=== PATIENT | female | born 2000 | race Two or more races ===

== ENCOUNTER 2024-07-13 19:32 | Emergency (ER) | payer MEDICAID, SELFPAY ==
[2024-07-13 19:59] VITALS: BP 116/73; PULSE 66; RESP 18; TEMP 37.1; O2SAT 99; BMI 30.4
--- NOTE | 2024-07-13 20:17 | XR_ITS ---
Examination: Abdomen sonogram, Limited Date and time of exam: July 13, 2024 at 10 0 1:00 PM Indications: Right upper abdominal pain and vomiting today Technique: Real-time armando scale transabdominal sonographic images of the upper abdomen obtained. Findings: Cholelithiasis, multiple gallstones Gallbladder wall 0.2 cm Common bile duct 0.3 cm Pancreatic head 2.8 cm Liver 14.2 cm fatty infiltration no focal liver lesions Normal hepatopedal portal venous flow Patent IVC Impression: Cholelithiasis, negative for cholecystitis
[2024-07-13] MEDS: FAMOTIDINE 20 MG TABLET 40 MG PO (20:23)
[2024-07-13] MEDS: ONDANSETRON ODT 4 MG TABRAP PO (20:23)
[2024-07-13] MEDS: PANTOPRAZOLE 40 MG TABLET PO (20:24)
[2024-07-13 21:46] LABS: Basophils % (Auto) 0 % (0-2.5); Eosinophils # (Auto) 0.1 Thou/mm3 (0.0-0.5); Eosinophils % (Auto) 0 % (0-10); Hematocrit 39.5 % (36.0-46.0); Hemoglobin 13.6 g/dL (12.0-16.0); Immature Granulocytes % (Auto) 0 % (0-0); Immature Granulocytes Auto 0.04 Thou/mm3 (0.00-0.00); Lymphocytes # (Auto) 1.6 Thou/mm3 (1.0-4.8); Lymphocytes % (Auto) 12 % (10-50); Mean Corpuscular HGB Conc 34.4 g/dl (31.0-37.0); Mean Corpuscular Hemoglobin 29.6 pg (25.0-35.0); Mean Corpuscular Volume 86 fL (80-100); Monocytes # (Auto) 0.9 Thou/mm3 (0.0-0.8); Monocytes % (Auto) 7 % (0-12); Neutrophils # (Auto) 10.2 Thou/mm3 (1.8-7.7); Neutrophils % (Auto) 80 % (37-80); Nucleated Red Blood Cell % 0 /100 WBC (0); Platelet Count 234 Thou/mm3 (140-440); RDW Standard Deviation 37.7 fL (36.4-46.3); White Blood Count 12.8 Thou/mm3 (3.6-11.0)
[2024-07-13 22:08] LABS: Alanine Aminotransferase 159 U/L (10-49); Albumin, Serum 4.6 gm/dL (3.5-5.0); Albumin/Globulin Ratio 1.6 (1.2-2.2); Alkaline Phosphatase 75 U/L (46-116); Amylase 67 U/L (30-118); Anion Gap 6 (7-16); Aspartate Amino Transferase 247 U/L (0-34); BUN/Creatinine Ratio 11 Ratio (12-20); Blood Urea Nitrogen 8 mg/dL (9-23); Calcium 9.5 mg/dL (8.3-10.6); Calcium (Corrected) 9.5 mg/dL (8.5-10.1); Carbon Dioxide 28.9 mMol/L (20.0-31.0); Chloride 102 mMol/L (98-107); Creatinine (Component) 0.7 mg/dL (0.6-1.3); Globulin 2.9 gm/dL (2.3-3.5); Glucose 122 mg/dL (74-106); Lipase 31 U/L (12-53); Magnesium 2.1 mg/dL (1.6-2.6); Osmolality,Calculated 273 (275-295); Potassium 3.4 mMol/L (3.4-5.1); Sodium 137 mMol/L (136-145); Total Protein 7.5 gm/dL (5.7-8.2); eGFR > 60 See Note
--- NOTE | 2024-07-13 23:25 | EDNOTE_ITS ---
ED Abdominal Pain RME/HPI General Chief Complaint: Abdominal Pain Stated complaint: ABD PAIN Time seen by provider: 07/13/24 20:05 Arrival date/time: 07/13/24 19:32 RME / HPI RME / HPI narrative: This section includes all my notes and documentations, including HPI, PE, and ED course. Gunner Corrales MD HPI: 24-year-old female here to be evaluated with a few hour history of severe epigastric pain and nausea and vomiting after eating. No other complaints. ROS: All negative except as documented in HPI. Physical Exam: General: Alert and oriented. In obvious pain. Eyes: Conjunctivae and lids clear. ENT: No nasal congestion. Neck: Supple. Heart: RRR. Lungs: No respiratory distress. Good air movement. No rhonchi, wheezing, rales. Abdomen: Soft with epigastric and RUQ tenderness. Normal bowel sounds. No distension. No rebound or guarding. Back: No CVA tenderness. Skin: Warm and dry. Neuro: Alert and oriented X 3. I reviewed all diagnostic test results. My review of the GB ultrasound report is cholelithiasis. Blood tests and urine tests unremarkable. At this point, diagnoses include cholelithiasis. Treatment here included Zofran and two Tylenol #3. Significant improvement noted. Recommended outpatient elective surgery. Based on my best medical judgment, made decision no further evaluation or treatment indicated at this time. Patient understands and agrees to the discharge instructions customized and printed, see below. Discharge Instructions from Dr. Corrales: 1. After evaluation, your symptoms are due to gallstones.? You need gallbladder to help digest fatty foods. 2. So to prevent future attacks, avoid all fatty and oily and greasy and buttery and dairy foods.? This usually means take out and fast food restaurants. 3. Zofran for nausea/vomiting.? Tylenol codeine for severe pain.? Augmentin to help early infection and to prevent severe infection. 4. See a private doctor on . Ask to review all test results and official radiology reports, to make sure you receive all necessary follow-ups and monitoring. Ask for a referral to see a surgeon for elective surgery. 5. Seek immediate medical care with intolerable pain, fever, or with any concerns. Gunner Corrales MD Related Data Previous Rx's ?Medication ?Instructions ?Recorded naproxen 500 mg tablet 500 mg PO BID PRN pain #14 tabs 07/24/23 ondansetron 4 mg disintegrating 4 mg PO Q6H #10 tabs 07/24/23 tablet acetaminophen 300 mg-codeine 30 mg 2 tab PO TID PRN pain #20 tabs 07/13/24 tablet amoxicillin 875 mg-potassium 1 tab PO BID #10 tabs 07/13/24 clavulanate 125 mg tablet ondansetron 4 mg disintegrating 4 mg PO TID PRN nausea and 07/13/24 tablet vomiting 5 days #10 tabs Allergies Allergy/AdvReac Type Severity Reaction Status Date / Time No Known Allergies Allergy Verified 07/24/23 09:35 Course Quality Measures none Orders Category Date Time Status gall bladder Stat Exams 07/13/24 20:17 Completed Amylase Stat Lab 07/13/24 20:56 Completed CBC Stat Lab 07/13/24 20:56 Completed CMP [Comprehensive Metabolic Panel] Stat Lab 07/13/24 20:56 Completed Lipase Stat Lab 07/13/24 20:56 Completed Magnesium Stat Lab 07/13/24 20:56 Completed Famotidine [Pepcid] Med 07/13/24 20:15 Discontinued 40 mg PO X1 ONE Ondansetron Odt [Zofran Odt] Med 07/13/24 20:15 Discontinued 4 mg PO X1 ONE Pantoprazole [Protonix] Med 07/13/24 20:15 Discontinued 40 mg PO X1 ONE Vital Signs Vital signs: Vital Signs Temperature 98.8 F 07/13/24 19:59 Pulse Rate 66 07/13/24 19:59 Respiratory Rate 18 07/13/24 19:59 Blood Pressure 116/73 07/13/24 19:59 Pulse Oximetry (%) 99 07/13/24 19:59 Oxygen Delivery Method Room Air 07/13/24 19:59 Abdominal Pain MDM Patient data External records reviewed:: [facility] previous records Clinical information provided by:: patient Social determinants that could affect healthcare access:: none Patient has the following chronic illnesses:: None How is presenting disease/condition affected by chronic disease/condition?: no chronic disease Evaluation data The following diagnostics were reviewed and interpreted by me:: lab results and radiology exam(s) Lab and/or radiology exams considered but not ordered:: None Interpretation Summary: Cholelithiasis Medications / Prescriptions Medications or Prescriptions considered but not ordered:: None Medication administrations:: Medication Administration History Discontinued Medications Famotidine (Famotidine 20 Mg Tablet) 40 mg PO X1 ONE Stop: 07/13/24 20:16 Last Admin: 07/13/24 20:23 Dose: 40 mg Documented By: CVL Ondansetron HCl (Ondansetron Odt 4 Mg Tabrap) 4 mg PO X1 ONE; Protocol Stop: 07/13/24 20:16 Last Admin: 07/13/24 20:23 Dose: 4 mg Documented By: CVL Pantoprazole Sodium (Pantoprazole 40 Mg Tablet) 40 mg PO X1 ONE Stop: 07/13/24 20:16 Last Admin: 07/13/24 20:24 Dose: 40 mg Documented By: CVL See chart Consultations Consultation(s) initiated? (list below): No Diagnosis Differential diagnosis abdominal pain: other (Biliary colic, PUD, gastritis, GERD) Most likely diagnosis given after review of the tests above:: Biliary colic Admission Indicated Admission indicated?: not indicated Explain why admission is indicated or not indicated:: Admission criteria not met Admission Request Was there a request for admission?: No Disposition Plan Disposition Plan: Discharge Discharge Attestation Discharge Attestation: The patient and all family members were given an opportunity to ask questions and understood the discharge instructions. Discharge instructions specifically effects, indications for sooner follow up or return to the emergency department, and the expected course of current diagnosis. Patient condition: Stable Discharge Plan Plan Patient Disposition: HOME (Self Care) Prescriptions/Referrals Prescriptions/Med Rec: New acetaminophen-codeine 300-30 mg tablet 2 tab PO TID MDD 6 PRN (Reason: pain) Qty: 20 0RF ondansetron 4 mg tablet,disintegrating 4 mg PO TID PRN (Reason: nausea and vomiting) 5 Days Qty: 10 0RF amoxicillin-pot clavulanate 875-125 mg tablet 1 tab PO BID Qty: 10 0RF No Action ondansetron 4 mg tablet,disintegrating 4 mg PO Q6H Qty: 10 0RF naproxen 500 mg tablet 500 mg PO BID PRN (Reason: pain) Qty: 14 0RF Referrals: No Primary/Family,Physician [Primary Care Provider] - In 1 week Problem List Clinical Impression: Gallstones Patient/Caregiver Discharge Instructions Discharge Activity: activity as tolerated Education Materials: ED Gallstones with Biliary Colic Additional Instructions: Discharge Instructions from Dr. Corrales: 1. After evaluation, your symptoms are due to gallstones.? You need gallbladder to help digest fatty foods. 2. So to prevent future attacks, avoid all fatty and oily and greasy and buttery and dairy foods.? This usually means take out and fast food restaurants. 3. Zofran for nausea/vomiting.? Tylenol codeine for severe pain.? Augmentin to help early infection and to prevent severe infection. 4. See a private doctor on . Ask to review all test results and official radiology reports, to make sure you receive all necessary follow-ups and monitoring. Ask for a referral to see a surgeon for elective surgery. 5. Seek immediate medical care with intolerable pain, fever, or with any concerns. Print Language: Urdu Stand Alone Forms: Estella Award Info., Patient Portal Info Letter
[2024-07-13 23:32] VITALS: RESP 18
== END 2024-07-13 23:32 | disposition home or self-care (01) ==
PROVIDERS: Emergency Provider Emergency Medicine
DX: K80.20 Calculus of gallbladder without cholecystitis without obstruction (principal)
CPT/HCPCS: 36415; 76705; 80053; 82150; 83690; 83735; 85025; 99284; Q0162; A9270

== ENCOUNTER 2024-07-14 02:36 | Emergency (ER) | payer MEDICAID, SELFPAY ==
[2024-07-14 02:41] VITALS: PULSE 62; RESP 20; O2SAT 98; BMI 30.9
[2024-07-14 03:17] VITALS: BP 128/79; PULSE 67; RESP 18; TEMP 36.7; O2SAT 100
[2024-07-14] MEDS: KETOROLAC INJ 60 MG/2 ML VIAL IM (03:27)
--- NOTE | 2024-07-14 05:47 | PD.EDABDPN ---
ED Abdominal Pain RME/HPI General Chief Complaint: Abdominal Pain Stated complaint: ABD PAIN Time seen by provider: 07/14/24 03:21 Arrival date/time: 07/14/24 02:36 26F with no significant PMH presents to ED with RUQ pain. Patient was discharged several hours ago with gallstones, but no cholecystitis. Patient came back because she's still in pain. Limitations: no limitations Related Data Previous Rx's ?Medication ?Instructions ?Recorded naproxen 500 mg tablet 500 mg PO BID PRN pain #14 tabs 07/24/23 ondansetron 4 mg disintegrating 4 mg PO Q6H #10 tabs 07/24/23 tablet acetaminophen 300 mg-codeine 30 mg 2 tab PO TID PRN pain #20 tabs 07/13/24 tablet amoxicillin 875 mg-potassium 1 tab PO BID #10 tabs 07/13/24 clavulanate 125 mg tablet ondansetron 4 mg disintegrating 4 mg PO TID PRN nausea and 07/13/24 tablet vomiting 5 days #10 tabs Allergies Allergy/AdvReac Type Severity Reaction Status Date / Time No Known Allergies Allergy Verified 07/24/23 09:35 Review of Systems Review of Systems Systems Reviewed: All systems reviewed, normal except as documented Constitutional Constitutional: Reports system reviewed and no additional complaints, except as documented, Denies fever(s) and Denies headache(s) ENT Ears, Nose, Mouth, and Throat: Denies disequilibrium and Denies headache(s) Cardiovascular Cardiovascular: Reports system reviewed and no additional complaints, except as documented, Denies chest pain and Denies dyspnea Respiratory Respiratory: Reports system reviewed and no additional complaints, except as documented, Denies cough and Denies dyspnea Gastrointestinal Gastrointestinal: Reports system reviewed and no additional complaints, except as documented, Reports as per HPI, Reports abdominal pain, Denies nausea and Denies vomiting Neurologic Neurologic: Reports system reviewed and no additional complaints, except as documented, Denies confusion, Denies disequilibrium and Denies headache(s) Psychiatric Psychiatric: Denies confusion Past Medical History Past Medical History NEUROLOGIC: Negative Neurological Disorders CARDIAC: Negative Cardiac Disorders or Congestive Heart Failure RESPIRATORY: Negative Chronic Obstructive Pulmonary Disease (COPD) GASTROINTESTINAL: Negative Gastrointestinal Disorders or Hepatitis GENITOURINARY: Negative Genitourinary Disorders or Renal Disease MUSCULOSKELETAL: Negative Musculoskeletal Disorders ENDOCRINE: Negative Endocrine Disorders, Diabetes Mellitus Type 1 or Diabetes Mellitus Type 2 HEMATOLOGIC: Negative Blood Disorders OTHER HISTORY: Negative Hospitalization, Autoimmune Disease, Down Syndrome, Developmental Delay, Shingles, Falls, MRSA, Vancomycin-Resistant Enterococci, Human Immunodeficiency Virus (HIV), Chicken Pox, Measles, Mumps, Rubella (Vietnamese Measles), Pertussis, Clostridium Difficile or Cancer Family History FAMILY HISTORY: Negative Family Psychiatric Problems, Family Respiratory Disorders, Family Cardiac Disorders, Family Gastrointestinal Problems, Family Cancer, Family Surgery or Family Anesthesia Reaction Surgical History SURGICAL: Negative Section Social History SMOKING STATUS: Never smoker SECOND HAND EXPOSURE: No SUBSTANCE USE: marijuana (1 bag per day) ED Exam General Limitations: Present no limitations General appearance: Present alert and in no apparent distress Head Head exam: Present atraumatic Eye Eye exam: Present normal appearance, PERRL and EOMI ENT ENT exam: Present normal exam, normal oropharynx and mucous membranes moist Neck Neck exam: Present normal inspection, full ROM and trachea midline Chest Chest inspection: Present normal inspection and symmetric chest wall rise Respiratory Respiratory exam: Present normal lung sounds bilaterally Cardiovascular Cardiovascular exam: Present regular rate, normal rhythm and normal heart sounds Abdominal Exam Abdominal exam: Present soft and normal bowel sounds Abdominal tenderness: Present RUQ and mild Extremities Exam Extremities exam: Present normal inspection and full ROM Back Exam Back exam: Present normal inspection and full ROM Neurological Exam Neurological exam: Present alert, oriented X3 and CN II-XII intact Psychiatric Psychiatric exam: Present normal affect and normal mood Skin Skin exam: Present warm, dry, intact and normal color Course Quality Measures none Orders Category Date Time Status Ketorolac Inj [Toradol Inj] Med 07/14/24 03:21 Discontinued 60 mg IM X1 ONE Vital Signs Vital signs: Vital Signs Temperature 98.1 F 07/14/24 03:17 Pulse Rate 67 07/14/24 03:17 Respiratory Rate 18 07/14/24 03:17 Blood Pressure 128/79 07/14/24 03:17 Pulse Oximetry (%) 100 07/14/24 03:17 Oxygen Delivery Method Room Air 07/14/24 03:17 O2 at 100% on RA and WNLs Abdominal Pain MDM MDM Narrative MDM Narrative:: 26F with no significant PMH presents to ED with RUQ pain. Patient was discharged several hours ago with gallstones, but no cholecystitis. Patient came back because she's still in pain. Physical exam reveals mild RUQ tenderness. Patient is afebrile, calm, and alert. Meds and health counselor given. Patient data External records reviewed:: [facility] previous records Clinical information provided by:: patient Social determinants that could affect healthcare access:: none Patient has the following chronic illnesses:: none How is presenting disease/condition affected by chronic disease/condition?: no chronic disease Evaluation data The following diagnostics were reviewed and interpreted by me:: other (specify) (none) Lab and/or radiology exams considered but not ordered:: not ordered Interpretation Summary: n/a Medications / Prescriptions Medications or Prescriptions considered but not ordered:: ordered Medication administrations:: Medication Administration History Discontinued Medications Ketorolac Tromethamine (Ketorolac Inj 60 Mg/2 Ml Vial) 60 mg IM X1 ONE Stop: 07/14/24 03:22 Last Admin: 07/14/24 03:27 Dose: 60 mg Documented By: CVL above Consultations Consultation(s) initiated? (list below): No Diagnosis Differential diagnosis abdominal pain: abdominal pain, acute appendicitis, calculus of kidney, constipation, diverticulitis, endometriosis, gastroenteritis, pancreatitis, small bowel obstruction and other (gallstones) Most likely diagnosis given after review of the tests above:: gallstones Admission Indicated Admission indicated?: not indicated Admission Request Was there a request for admission?: No Disposition Plan Disposition Plan: Discharge Discharge Attestation Discharge Attestation: The patient and all family members were given an opportunity to ask questions and understood the discharge instructions. Discharge instructions specifically effects, indications for sooner follow up or return to the emergency department, and the expected course of current diagnosis. Patient condition: Stable Discharge Plan Plan Patient Disposition: HOME (Self Care) Disposition Comment: Stable Prescriptions/Referrals Prescriptions/Med Rec: No Action acetaminophen-codeine 300-30 mg tablet 2 tab PO TID MDD 6 PRN (Reason: pain) Qty: 20 0RF ondansetron 4 mg tablet,disintegrating 4 mg PO TID PRN (Reason: nausea and vomiting) 5 Days Qty: 10 0RF amoxicillin-pot clavulanate 875-125 mg tablet 1 tab PO BID Qty: 10 0RF ondansetron 4 mg tablet,disintegrating 4 mg PO Q6H Qty: 10 0RF naproxen 500 mg tablet 500 mg PO BID PRN (Reason: pain) Qty: 14 0RF Problem List Clinical Impression: Gallstones Patient/Caregiver Discharge Instructions Additional Instructions: Please follow-up with PCP within 24-48 hours and return immediately if symptoms worsen. If problem persists, can see PCP for referral to general surgeon for elective outpatient gallbladder removal. 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 Corrales
== END 2024-07-14 03:37 | disposition home or self-care (01) ==
LOC: SERX 05:19
PROVIDERS: Emergency Provider Emergency Medicine; PCP Family Medicine
DX: K80.20 Calculus of gallbladder without cholecystitis without obstruction (principal)
CPT/HCPCS: 96372; 99283; J1885